=== PATIENT | male | born 1965 | race Caucasian/White ===

== ENCOUNTER 2018-05-12 01:37 | Observation (INO) | payer BC, SELFPAY ==
[2018-05-12] VITALS (9 sets, daily range): BP systolic 111–145; BP diastolic 57–94; PULSE 60–78; RESP 16–24; TEMP 36.7–37.7; O2SAT 93–98; BMI 28.2; BMI 27.3; BMI 27.2
--- NOTE | 2018-05-12 02:04 | ED.VISSUMM ---
- ER Visit Summary Date of Service: 05/12/18 Chief Complaint: [Right flank pain] History of Present Illness: The patient is a 52 M [presents the emergency department with right-sided flank pain that started about 24 hours ago. Patient was seen at [facility] and diagnosed with a 7 mm right ureteral stone and discharged home. Patient was to follow-up with urology in [facility] however he started having more pain and presented last evening to [facility]]. Patient was referred to [facility] for urology consultation. was contacted by the other facility who agreed to see the patient. Patient continues to complain of pain a 6 out of 10. Patient states he has had kidney stones before but is always passed them on his own. Patient denies any fevers. Patient has had some vomiting. Physical Examination: [HERAHUL-PERRLA, EOMI. Cranial nerves II through XII grossly intact. TMs clear. Mucous membranes moist. No adenopathy. Cardiovascular-regular rate and rhythm without murmur or ectopy Lungs-clear to auscultation, chest wall stable without crepitus or subcu emphysema Abdomen-normoactive bowel sounds, soft. Patient has tenderness to the right lower quadrant and CVA tenderness on the right. There is no rebound, rigidity, or perineal signs. Extremities-intact ?4, normal range of motion, normal pulses, atraumatic] Test Results: [Patient had blood work that was done yesterday that showed an elevated white blood cell count of 15,000. Chemistries showed a creatinine of 1.9. Urinalysis did not show evidence of infection. Patient does not have a report of the CAT scan but brought some paper images that showed a 7 mm right ureteral stone at the right UVJ.] Emergency Department Course and Treatment: [Patient was medicated with Dilaudid and Phenergan and I discussed case with will admit patient] Treatment Plan: [Admit] Disposition: [Admit] Impression: [Right ureteral stone Intractable right flank pain] This note was generated with [employer] software. It may contain incorrect words, spelling, and punctuation that were not noted in review of the chart prior to signing ED Disposition - Plan for ED Patient: Chief Complaint: Flank Pain Referrals: Jose Hernandez [Primary Care Provider] -
[2018-05-12] MEDS: HYDROmorphone 1 MG/ML Syringe IV (02:07)
[2018-05-12] MEDS: proMETHazine 25 MG/ML Syringe 6.25 MG IV (02:07)
--- NOTE | 2018-05-12 02:07 | ED.DCSUM_ITS ---
- ER Visit Summary Date of Service: 05/12/18 Chief Complaint: [Right flank pain] History of Present Illness: The patient is a 52 M [presents the emergency department with right-sided flank pain that started about 24 hours ago. Patient was seen at [facility] and diagnosed with a 7 mm right ureteral stone and discharged home. Patient was to follow-up with urology in [facility] however he started having more pain and presented last evening to [facility]]. Patient was referred to [facility] for urology consultation. was contacted by the other facility who agreed to see the patient. Patient continues to complain of pain a 6 out of 10. Patient states he has had kidney stones before but is always passed them on his own. Patient denies any fevers. Patient has had some vomiting. Physical Examination: [HERAHUL-PERRLA, EOMI. Cranial nerves II through XII grossly intact. TMs clear. Mucous membranes moist. No adenopathy. Cardiovascular-regular rate and rhythm without murmur or ectopy Lungs-clear to auscultation, chest wall stable without crepitus or subcu emphysema Abdomen-normoactive bowel sounds, soft. Patient has tenderness to the right lower quadrant and CVA tenderness on the right. There is no rebound, rigidity, or perineal signs. Extremities-intact ?4, normal range of motion, normal pulses, atraumatic] Test Results: [Patient had blood work that was done yesterday that showed an elevated white blood cell count of 15,000. Chemistries showed a creatinine of 1.9. Urinalysis did not show evidence of infection. Patient does not have a report of the CAT scan but brought some paper images that showed a 7 mm right ureteral stone at the right UVJ.] Emergency Department Course and Treatment: [Patient was medicated with Dilaudid and Phenergan and I discussed case with will admit patient] Treatment Plan: [Admit] Disposition: [Admit] Impression: [Right ureteral stone Intractable right flank pain] This note was generated with [employer] software. It may contain incorrect words, spelling, and punctuation that were not noted in review of the chart prior to signing ED Disposition - Plan for ED Patient: Chief Complaint: Flank Pain Referrals: Jose Hernandez [Primary Care Provider] -
[2018-05-12] MEDS: 0.9% Normal Saline 1,000 ML 75 ML IV ×2 (04:05→14:38)
[2018-05-12] MEDS: Morphine 2 MG/ML Syringe IV ×2 (05:54→11:35)
[2018-05-12] MEDS: Lidocaine Jelly 2% 20 ML Syringe (URO-JET) 20 APPLIC ×2 (08:54→09:27)
--- NOTE | 2018-05-12 08:55 | PCM.HP.STD ---
Problem List (1) Ureteral calculus, right Status: Acute Comment: 7mm right ureteral calculi (2) Renal colic on right side Status: Acute History of Present Illness Date of Admission: 05/12/18 Chief Complaint: Right ureteral calculi The patient is a 52 year old male with a 7 mm stone in right ureter causing obstruction. plan to admit for pain control, place a stent then plan for ESWL or ureteroscopy later this week. Past Medical History Allergies acetaminophen [From Percocet] Adverse Reaction (Verified 05/12/18 01:37) Nausea oxycodone [From Percocet] Adverse Reaction (Verified 05/12/18 01:37) Nausea Home Medications: Ambulatory Orders Medication Instructions Recorded Lansoprazole [Prevacid] mg PO DAILY PRN PRN 05/12/18 Surgical History: no surgical history Psychiatric History: No pertinent psych hx Lives: Spouse/ Significant Other Smoking Status: Never smoker Tobacco Use: Non-smoker Alcohol: None Drugs: None - *Family History Paternal History Items: No pertinent history Review of Systems Constitutional: Denies: Chills, Fever, Weight Change HEENT: Denies: Head Aches, Sinus Congestion, Sinus Drainage Cardiovascular: Denies: Chest Pain, Palpitations Respiratory: Denies: Cough, Shortness of breath at rest, Sputum production Gastrointestinal: Reports: Abdominal Pain. Denies: Nausea, Vomiting Genitourinary: Reports: Hematuria. Denies: Dysuria Musculoskeletal: Denies: Joint Pain, Joint Tenderness Skin: Denies: Rash, Wounds Neurological: Denies: Numbness, Tingling, Focal weakness Psychiatric: Denies: Anxiety, Depression, Homicidal Ideations, Suicidal Ideations Hematologic/ Lymphatic: Denies: Easy Bruising, Easy Bleeding VTE Information - Inpt Only VTE Present on Admission: No VTE Mechan Device Prophylaxis: SCD's Patient Problems: Active and Suspected Problems Ureteral calculus, right (Acute) 7mm right ureteral calculi Renal colic on right side (Acute) - Physical Exam General: Alert, Oriented x3, Cooperative HEENT: Atraumatic, PERRLA, EOMI, Normocephalic Neck: Supple, No JVD, Negative Carotid Bruits Lungs: Clear to auscultation, Normal air movement Cardiovascular: Regular rate, No murmurs Abdomen: Bowel Sounds Present, Soft, Non Tender Extremities: No edema, Capillary Refill Less than 3 Seconds Skin: No rashes, No breakdown Musculoskeletal: No Tenderness to Palpation of Joints or Extremities Neurological: Cranial nerves II-XII grossly intact Psych/Mental Status: Normal Affect, Appropriate Vital Signs Temp Pulse Resp BP Pulse Ox 98.1 F 60 16 115/66 96 05/12/18 08:32 05/12/18 08:32 05/12/18 08:32 05/12/18 08:32 05/12/18 08:32 Oxygen Delivery Method Room Air Weight: 86.3 kg Body Mass Index (BMI) 27.2 Intake and Output for Last 24 Hours 05/10/18 05/11/18 05/12/18 23:59 23:59 23:59 Intake Total 137 / 137 Output Total 300 / 300 Balance -163 / -163 Assessment/Plan All Active Problems Ureteral calculus, right (Acute) Renal colic on right side (Acute) admit for observation plan for cystocopy and right stent in am then discharge and outpatient surgery for stone.
--- NOTE | 2018-05-12 09:15 | PCM.DC.URO ---
Discharge Diet: Light diet - advance as tolerated Discharge Activity: No Restrictions Call your doctor if your incision/area has: Continuous Slow Oozing, Sudden Increased Bleeding, Increased Pain/ Swelling, Increased Redness, Foul Smelling Discharge, Swelling at the incision site Instructions: Ureteral Stents Allergies/Adverse Reactions: Allergies acetaminophen [From Percocet] Adverse Reaction (Verified 05/12/18 01:37) Nausea oxycodone [From Percocet] Adverse Reaction (Verified 05/12/18 01:37) Nausea Medications to take at Discharge Ciprofloxacin [Cipro] 500 mg PO BID #6 tab 05/12/18 Hydrocodone/Acetaminophen [Hydrocodon-Acetaminophen 5-325] 1 ea PO Q4H PRN PRN 7 Days #20 tab 05/12/18 Lansoprazole [Prevacid] mg PO DAILY PRN PRN 05/12/18 The following prescriptions were given: Hydrocodone/Acetaminophen [Hydrocodon-Acetaminophen 5-325] 1 ea PO Q4H PRN PRN 7 Days #20 tab PRN Reason: Pain Ciprofloxacin [Cipro] 500 mg PO BID #6 tab Primary Care Physician: Jose Hernandez [Primary Care Provider] - Please Follow Up With: Yeyo Marcial MD When: call my office to get set up for surgery later this week.
--- NOTE | 2018-05-12 09:39 | OP.PCM_ITS ---
Problem List (1) Ureteral calculus, right Status: Acute Comment: 7mm right ureteral calculi (2) Renal colic on right side Status: Acute Report of Operation Date of Procedure: 05/12/18 Pre-Operative Diagnosis: Right distal ureteral calculi causing obstruction and pain Post-Operative Diagnosis: Same Surgery/Procedure Performed:: Cystoscopy right retrograde pyelogram right stent placement Description of Surgical Findings:: 52-year-old male taken back to the operating room at the smooth induction of general anesthesia he was placed supine on the table, the penis and testicles were prepped and draped in the usual sterile fashion, went into the urethra with a 20 [employer] rigid cystourethroscope, the entire length of the urethra is normal, sphincter was normal, the prostate was normal, the trigone was normal, the right side trigone is a little bit engorged and inflamed the left is normal I think cannulated the right ureteral orifice with a Glidewire advanced a wire up into the kidney and then next the wire advanced the Pollack catheter performed a retrograde pyelogram and he could see a radiolucent stone in the distal right ureter, after retrograde pyelogram then advanced a stent on the right side the stent coiled in the kidney and bladder good position, I drain the bladder patient anesthetic was reversed plan to discharge patient home today with antibiotics and pain medicine will set him up for ureteroscopy in the near future. Type of Anesthesia:: General Drains: stent - Admit VTE Documentation VTE Present on Admission: No VTE Mechan Device Prophylaxis: SCD's VTE Pharm Prophylaxis ordered?: No Reason prophylaxis not ordered:: Treatment Not Indicated
[2018-05-12] MEDS: HYDROcodone Bitartrate/Apap 5/325 Tablet PO (16:12)
[2018-05-12] MEDS: Phenazopyridine 95 MG Tablet 190 MG PO (16:12)
== END 2018-05-12 17:35 | disposition home or self-care (01) ==
LOC: ED 02:20 → MS3 02:26
PROVIDERS: Admitting Provider Urology; Emergency Provider Emergency Medicine; Family Provider Family Medicine; PCP Family Medicine; Visit Provider Urology
PROC: (CPT 52332; principal; 2018-05-12 09:00)
DX: N20.1 Calculus of ureter (principal); Z87.442 Personal history of urinary calculi
CPT/HCPCS: 52332; 76000; 96361; 96374; 96375; 96376; 97802; 99218; 99282; J7030; A4216; C1769; C2617; G0378; J3490

== ENCOUNTER → 2018-05-23 09:46 | Outpatient (CLI) | payer BC, SELFPAY ==
--- NOTE | 2018-05-23 10:00 | RAD_ITS ---
STUDY: X-RAY - ABDOMEN/PELVIS REASON FOR EXAM: Male, 52 years old. Right-sided kidney stone, stent placement 3 weeks ago TECHNIQUE: Two AP supine views of the abdomen and pelvis. COMPARISON: None. FINDINGS: The lung bases are not in the field of view of the study. There is an unremarkable bowel gas pattern. There is no demonstrated free abdominal air. There is a right-sided ureteral stent. No radiopaque calculus is identified along the path of the stent. There are bilateral pelvic phleboliths. Prostatic calcifications are present. Surgical clips are seen in the right upper quadrant of the abdomen. Normal visualized osseous structures. RAD/Abdomen Single View IMPRESSION: Right-sided ureteral stent is noted. No radiopaque calculus is noted along the course of the stent. There are bilateral pelvic phleboliths. Prostate calcifications are noted. Electronically Signed: Sean Engle MD at 17:02 EDT , Service support ,
== END ==
PROVIDERS: Family Provider Family Medicine; PCP Family Medicine; Visit Provider Urology
DX: N20.0 Calculus of kidney (principal)
CPT/HCPCS: 74018